=== PATIENT | male | born 1985 | race Caucasian/White ===

== ENCOUNTER 2020-01-18 18:18 | Emergency (ER) | payer MEDICAID ==
[~2020-01-18] VITALS: Ht 167.6 cm; Wt 68.0 kg
[2020-01-18 18:47] VITALS: Ht 167.6 cm; Wt 68.0 kg
[2020-01-18 22:37] VITALS: BP 128/87
== END 2020-01-18 22:37 | disposition home or self-care (01) ==
LOC: ED 18:18
DX: S43.084A Other dislocation of right shoulder joint, initial encounter (principal); X50.1XXA Overexertion from prolonged static or awkward postures, initial encounter; Y93.89 Activity, other specified; Y92.89 Other specified places as the place of occurrence of the external cause; Y99.8 Other external cause status
CPT/HCPCS: J1885; J2250; J2270; J2310; J2405; J3010